=== PATIENT | male | born 1960 | race Caucasian/White ===

== ENCOUNTER → 2016-06-21 | Outpatient (CLI) | payer BC ==
[~2016-06-21] MED LIST: ASPI81TA28 PO; LISI-729 PO; PRT/20 PO; SIMV20TA2 PO
--- NOTE | 2016-06-21 12:27 | DIAGNOSTIC IMAGING REPORT ---
ORBIT RADIOGRAPHS 3 VIEWS HISTORY: pre-MRI screening. COMPARISON: None. FINDINGS: There are no radiopaque foreign bodies identified within the orbits. IMPRESSION: No radiopaque foreign bodies identified within the orbits. Electronically signed by: Chai Aguilera M.D. 06/21/2016 12:24 PM Dictated Date/Time: 06/21/2016 12:24 PM
--- NOTE | 2016-06-21 13:46 | DIAGNOSTIC IMAGING REPORT ---
MRI left knee LEFT LOWER EXT JOINT WITHOUT CLINICAL HISTORY: M25.562 pain TECHNIQUE: Multiaxial MRI acquisition COMPARISON STUDY: None FINDINGS: Signal characteristics the osseous structures are unremarkable. There is no significant bone marrow replacing process. Anterior and posterior cruciate ligaments are intact. The collateral ligaments are unremarkable. The patellar and neck: Is intact. There are findings of mild chondral malacia patella involving the medial patellar articular surface. The medial menisci demonstrates a tear posterior horn medial meniscus. 2. Short segment linear tears extending to the inferior meniscal surface. There is focal truncation of the apex of the posterior horn. Lateral meniscus is unremarkable. There is no significant popliteal cyst. IMPRESSION: 1. Tears posterior horn medial meniscus extending to the inferior meniscal surface as well as meniscal apex 2. 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 3. Minimal degenerative change articular services the medial and lateral joint compartments. Electronically signed by: Jax De La Garza M.D. 06/21/2016 1:44 PM Dictated Date/Time: 06/21/2016 1:37 PM
== END | disposition home or self-care (01) ==
LOC: C.RAD 11:43
PROVIDERS: ATTEND Physician Assistant
DX: S83.242A Other tear of medial meniscus, current injury, left knee, initial encounter (principal); X58.XXXA Exposure to other specified factors, initial encounter

== ENCOUNTER → 2016-07-03 | Outpatient (CLI) | payer BC ==
[2016-07-03 12:25] LABS: HEMATOCRIT 46.9 % (42-52); MEAN CELL VOLUME 94.4 fL (80-100); MEAN CORPUSCULAR HEMOGLOBIN 31.8 pg (25-34); MEAN CORPUSCULAR HGB CONC 33.7 g/dl (32-36); MEAN PLATELET VOLUME 10.2 fL (7.4-10.4); PLATELET COUNT 241 K/uL (130-400); RED BLOOD COUNT 4.97 M/uL (4.7-6.1); WHITE BLOOD COUNT 6.29 K/uL (4.8-10.8)
[2016-07-03 12:32] LABS: INR 0.9 (0.9-1.1)
[2016-07-03 14:29] LABS: BLOOD UREA NITROGEN 22 mg/dl (7-18); CARBON DIOXIDE 25 mmol/L (21-32); CHLORIDE 107 mmol/L (98-107); CREATININE 0.97 mg/dl (0.60-1.40); SODIUM 141 mmol/L (136-145)
== END | disposition home or self-care (01) ==
LOC: C.CPL 10:55
PROVIDERS: ATTEND Physician Assistant
DX: Z01.810 Encounter for preprocedural cardiovascular examination (principal); Z01.812 Encounter for preprocedural laboratory examination; S83.241D Other tear of medial meniscus, current injury, right knee, subsequent encounter; X58.XXXD Exposure to other specified factors, subsequent encounter

== ENCOUNTER → 2016-09-02 | Day surgery (SDC) | payer BC, OTHER ==
[2016-07-03 13:31] VITALS: Ht 188 cm; Wt 120.5 kg
[~2016-09-02] VITALS: Ht 188 cm; Wt 120.5 kg
[~2016-09-02] MED LIST changes: +CEFAZOLIN 3000 MG/65 ML D5W IV SCH; +DEXAMETHASONE SOD INJ 4 MG/ML VIAL ONE; +FENTANYL CITRATE INJ 50 MCG/1 ML 2 ML VIAL ONE; +LACTATED RINGER'S 1000ML 1,000 ML IV SCH; +LIDOCAINE HCL 2% 2 ML VIAL (20MG/ML) ONE; +MIDAZOLAM HCL 1 MG/ML 2ML VIAL ONE; +ONDANSETRON INJ 2 MG/ML 2 ML VIAL ONE; +PROPOFOL IV EMULSION 10 MG/ML 20 ML VIAL IV ONE
== END | disposition home or self-care (01) ==
LOC: EDSTATUS 07:00 → C.PAT 13:45
PROVIDERS: ATTEND Orthopaedic Surgery Sports Medicine
DX: M23.207 Derangement of unspecified meniscus due to old tear or injury, left knee (principal)